=== PATIENT | female | born 2000 | race American Indian/Alaskan Native ===

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

== ENCOUNTER 2018-10-29 17:47 | Emergency (ER) | payer MEDICAID, OTHER ==
[2018-10-29 18:43] LABS: Basophils # (Auto) 0.1 K/mm3 (0.0-0.1); Basophils % (Auto) 0.5 % (0.0-1.8); Eosinophils # (Auto) 0.2 K/mm3 (0.0-0.4); Eosinophils % (Auto) 1.4 % (0.0-4.3); Hematocrit 37.9 % (30.3-42.9); Hemoglobin 12.5 gm/dl (10.1-14.3); Lymphocytes # (Auto) 2.2 K/mm3 (1.2-5.4); Lymphocytes % (Auto) 19.7 % (13.4-35.0); Mean Corpuscular HGB Conc 33 % (30-34); Mean Corpuscular Volume 83 fl (79-97); Monocytes % (Auto) 8.8 % (0.0-7.3); Platelet Count 309 K/mm3 (140-440); Red Blood Count 4.59 M/mm3 (3.65-5.03); Red Cell Distribution Width 14.6 % (13.2-15.2)
[2018-10-29 19:07] LABS: Alanine Aminotransferase 39 units/L (7-56); Albumin 4.2 g/dL (3.9-5); BUN/Creatinine Ratio 14; Blood Urea Nitrogen 7 mg/dL (7-17); Calcium 8.9 mg/dL (8.4-10.2); Hemolysis Index 2
[2018-10-29 19:20] LABS: Bilirubin,Urine NEG (Negative); Blood,Urine NEG (Negative); Color,Urine Yellow (Yellow); Mucus,Urine FEW /HPF; Protein,Urine <15 mg/dL mg/dL (Negative)
[2018-10-29] MEDS ORDERED: TYLENOL PO ONE (23:04)
[2018-10-29] MEDS ORDERED: ZOFRAN ODT PO ONE (23:04)
--- NOTE | 2018-10-30 00:02 | Emergency Department Report ---
ED N/V/D HPI - General Chief complaint: Nausea/Vomiting/Diarrhea Stated complaint: VOMIT/NAUSEA/WEAK Time Seen by Provider: 10/29/18 22:00 Source: patient Mode of arrival: Ambulatory Limitations: No Limitations - History of Present Illness Initial comments: Patient is a A0 18-year-old [place]inamese female with no past medical history and is approximately 4 weeks gestation presents to the ED with complaint of acute onset persistent intractable nausea and vomiting for the last 1 week. Patient says that she has not been able to keep anything down especially in the last 24 hours. Patient also complains of pelvic pain. Patient denies vaginal bleeding, dysuria, urinary frequency and urgency, hematuria, diarrhea, fever, chills, dizziness, headache, chest pain or shortness of breath. MD complaint: nausea, vomiting, abdominal pain -: Gradual, week(s) (1) Description of Vomiting: food contents, bilious Description of Diarrhea: other (No diarrhea) Associated Abdominal Pain: Yes (Pelvic pain) Radiation: none Severity: severe Pain Scale: 7 Quality: cramping, aching, sharp Consistency: intermittent Improves with: none Worsens with: vomiting Context: other (Recently tested positive for ) Associated Symptoms: loss of appetite, malaise, nausea/vomiting. denies: myalgias, chest pain, cough, fever/chills, headaches, shortness of breath, syncope, weakness - Related Data Previous Rx's Medication Instructions Recorded Last Taken Type ALBUTEROL Inhaler (OR & NICU) 2 puff IH QID PRN #1 inhalation 06/10/14 Unknown Rx [ProAir HFA Inhaler] Azithromycin [Zithromax TAB] 500 mg PO QDAY #3 tablet 06/10/14 Unknown Rx Benzonatate [Tessalon Perles] 100 mg PO Q8HR #20 capsule 06/10/14 Unknown Rx guaiFENesin/CODEINE [Robitussin AC] 5 ml PO TID #120 ml 06/10/14 Unknown Rx predniSONE [Prednisone] 40 mg PO QDAY #10 tablet 06/10/14 Unknown Rx Ketorolac [Toradol] 10 mg PO Q6H PRN #20 tablet 11/05/17 Unknown Rx Ondansetron [Zofran Odt] 4 mg PO Q8HR PRN #14 tab.rapdis 05/12/18 Unknown Rx Ibuprofen [Motrin] 600 mg PO Q8H PRN #30 tablet 11/07/17 Unknown Rx Ondansetron [Zofran TAB] 4 mg PO Q8HR PRN #20 tablet 11/07/17 Unknown Rx Pnv No.95/Ferrous Fum/Folic AC 1 each PO DAILY #30 tablet 10/30/18 Unknown Rx [Prenavite Tablet] Promethazine [Phenergan] 25 mg PO Q6HR PRN #30 tab 10/30/18 Unknown Rx Promethazine [Phenergan] 25 mg MT Q6HR PRN #15 supp.rect 10/30/18 Unknown Rx Allergies Allergy/AdvReac Type Severity Reaction Status Date / Time No Known Allergies Allergy Verified 06/10/14 10:56 ED Review of Systems ROS: Stated complaint: VOMIT/NAUSEA/WEAK Other details as noted in HPI Comment: All other systems reviewed and negative Constitutional: no symptoms reported, see HPI. denies: diaphoresis, fever, malaise Eyes: as per HPI. denies: eye pain, eye discharge, vision change ENT: as per HPI. denies: ear pain, throat pain, dental pain, epistaxis Respiratory: no symptoms reported, see HPI, cough. denies: shortness of breath, SOB with exertion, SOB at rest Cardiovascular: as per HPI. denies: chest pain, palpitations, dyspnea on exertion, syncope, paroxysmal nocturnal dyspnea Endocrine: no symptoms reported, see HPI. denies: excessive sweating, flushing, intolerance to cold, increased urine, unexplained weight gain Gastrointestinal: as per HPI, abdominal pain, nausea, vomiting. denies: constipation, hematemesis, hematochezia Genitourinary: as per HPI. denies: urgency, dysuria, frequency, hematuria, discharge, abnormal menses, dyspareunia Musculoskeletal: as per HPI, arthralgia, myalgia. denies: back pain Skin: as per HPI. denies: rash, lesions, change in color, change in hair/nails Neurological: as per HPI. denies: headache, weakness, numbness, paresthesias, confusion, vertigo Psychiatric: as per HPI Hematological/Lymphatic: as per HPI ED Past Medical Hx - Past Medical History Previous Medical History?: No Additional medical history: HEAVY MENSES - Surgical History Past Surgical History?: Yes Hx Cholecystectomy: Yes - Social History Smoking Status: Never Smoker Substance Use Type: None - Medications Home Medications: Home Medications Medication Instructions Recorded Confirmed Last Taken Type ALBUTEROL Inhaler (OR & NICU) 2 puff IH QID PRN #1 inhalation 06/10/14 Unknown Rx [ProAir HFA Inhaler] Azithromycin [Zithromax TAB] 500 mg PO QDAY #3 tablet 06/10/14 Unknown Rx Benzonatate [Tessalon Perles] 100 mg PO Q8HR #20 capsule 06/10/14 Unknown Rx guaiFENesin/CODEINE [Robitussin AC] 5 ml PO TID #120 ml 06/10/14 Unknown Rx predniSONE [Prednisone] 40 mg PO QDAY #10 tablet 06/10/14 Unknown Rx Ketorolac [Toradol] 10 mg PO Q6H PRN #20 tablet 11/05/17 Unknown Rx Ondansetron [Zofran Odt] 4 mg PO Q8HR PRN #14 tab.rapdis 11/05/17 Unknown Rx Ibuprofen [Motrin] 600 mg PO Q8H PRN #30 tablet 11/07/17 Unknown Rx Ondansetron [Zofran TAB] 4 mg PO Q8HR PRN #20 tablet 11/07/17 Unknown Rx Pnv No.95/Ferrous Fum/Folic AC 1 each PO DAILY #30 tablet 10/30/18 Unknown Rx [Prenavite Tablet] Promethazine [Phenergan] 25 mg PO Q6HR PRN #30 tab 10/30/18 Unknown Rx Promethazine [Phenergan] 25 mg MT Q6HR PRN #15 supp.rect 10/30/18 Unknown Rx ED Physical Exam - General Limitations: No Limitations General appearance: alert, in no apparent distress - Head Head exam: Present: atraumatic, normocephalic, normal inspection - Eye Eye exam: Present: normal appearance, PERRL, EOMI Pupils: Present: normal accommodation - ENT ENT exam: Present: normal exam, normal orophraynx, mucous membranes moist, TM's normal bilaterally, normal external ear exam - Neck Neck exam: Present: normal inspection. Absent: tenderness, meningismus, lymphadenopathy - Respiratory Respiratory exam: Present: normal lung sounds bilaterally. Absent: respiratory distress, wheezes, chest wall tenderness, accessory muscle use, decreased breath sounds - Cardiovascular Cardiovascular Exam: Present: regular rate, normal rhythm, normal heart sounds - GI/Abdominal GI/Abdominal exam: Present: soft, tenderness (suprapubic), normal bowel sounds. Absent: distended, guarding, rebound, hyperactive bowel sounds, hypoactive bowel sounds - Rectal Rectal exam: Present: deferred - Extremities Exam Extremities exam: Present: normal inspection, full ROM, normal capillary refill - Back Exam Back exam: Present: normal inspection, full ROM. Absent: tenderness, CVA tenderness (R), CVA tenderness (L), muscle spasm, paraspinal tenderness, vertebral tenderness - Neurological Exam Neurological exam: Present: alert, oriented X3, CN II-XII intact, normal gait, reflexes normal - Psychiatric Psychiatric exam: Present: normal affect - Skin Skin exam: Present: warm, dry, intact, normal color ED Course Vital Signs 10/29/18 10/29/18 10/30/18 18:00 23:50 00:50 Temperature 98.2 F Pulse Rate 71 Respiratory 18 18 20 Rate Blood Pressure 119/67 O2 Sat by Pulse 100 Oximetry - Reevaluation(s) Reevaluation #1: 10/29/18 23:03 Patient is alert and oriented 3 and is not in any distress with normal vital signs. Labs were drawn and patient today for pain and nausea and vomiting. Transvaginal ultrasound also ordered. 10/30/18 03:09 The Transvaginal US shows an IUP of 5 weeks 6 days with a yolk sac ED Medical Decision Making - Lab Data Result diagrams: 10/29/18 18:09 10/29/18 18:09 - Radiology Data Radiology results: report reviewed, image reviewed Transvaginal US shows an IUP of approximately 5 weeks 6 days with a folk sac - Medical Decision Making Patient is alert and oriented 3 and is not in any distress. Lab test results were reviewed and are unremarkable except for acute leukocytosis of approximately 11,400, and a positive hCG qualitative test. HCG quantitative test was 9056. The transvaginal US shows an IUP of approximately 5 weeks 6 days with a yolk sac. Patient discharged home and advised to maintain a Pelvic rest, and follow up with her [facility] physician in 5-7 days for reevaluation, or return to the ED immediately if symptoms get worse. - Differential Diagnosis Hyperemesis Gravidarum; Threatened miscarriage, Acute UTI Critical care attestation.: If time is entered above; I have spent that time in minutes in the direct care of this critically ill patient, excluding procedure time. ED Disposition Clinical Impression: Nausea and vomiting in adult patient, Hyperemesis gravidarum, Threatened miscarriage in early Disposition: TO HOME OR SELFCARE Is pt being admited?: No Does the pt Need Aspirin: No Condition: Stable Instructions: Morning Sickness (ED), (ED), Hyperemesis Gravidarum (ED), Acute Nausea and Vomiting (ED), Threatened Miscarriage (ED) Additional Instructions: MAINTAIN A CLEAR LIQUID DIET FOR 12-24 HOURS, DRINK PLENTY OF FLUIDS AND FOLLOW UP WITH YOUR [facility]GE[facility] PHYSICIAN IN 5-7 DAYS FOR REEVALUATION Prescriptions: Promethazine [Phenergan] 25 mg PO Q6HR PRN #30 tab PRN Reason: Nausea Promethazine [Phenergan] 25 mg MT Q6HR PRN #15 supp.rect PRN Reason: Nausea Pnv No.95/Ferrous Fum/Folic AC [Prenavite Tablet] 1 each PO DAILY #30 tablet Referrals: YOSELYN SWAN MD [Primary Care Provider] - 3-5 Days Forms: Work/School Release Form(ED) Time of Disposition: 03:17 Print Language: AFGHAN
--- NOTE | 2018-10-30 02:49 | Ultrasound Report ---
PROCEDURE: US OB <= 14 WEEKS FETUS TECHNIQUE: OB ultrasound obtained. HISTORY: PELVIC PAIN: COMPARISONS: None FINDINGS: Uterus measures 9.9 x 4.1 x 5.3 cm. Endometrial stripe measures 9 mm thick. Cystic structures seen wi thin the endometrium likely represents intrauterine gestational sac with mean sac diameter of 1.05 cm corresponding gestational age of 5 weeks and 6 days. Yolk sac visualized. Possible small pole measuring 0.18 cm, however too small for dates. Doppler flow seen in both ovaries. Slightly complex left adnexal lesion measuring 1.6 cm may represen t involuting corpus luteal cyst. IMPRESSION: Cystic structures seen within the endometrium likely represents intrauterine gestational sac with becky n sac diameter of 1.05 cm corresponding gestational age of 5 weeks and 6 days. Yolk sac visualized. P ossible small pole measuring 0.18 cm, however too small for dates. Close serial ultrasound foll ow-up recommended. This document is electronically signed by Phil Perdue MD., Oct 30 2018 02:47:11 AM ET
--- NOTE | 2018-10-30 02:50 | Ultrasound Report ---
PROCEDURE: US OB TRANSVAGINAL TECHNIQUE: OB ultrasound obtained. HISTORY: PELVIC PAIN: COMPARISONS: None FINDINGS: Uterus measures 9.9 x 4.1 x 5.3 cm. Endometrial stripe measures 9 mm thick. Cystic structures seen wi thin the endometrium likely represents intrauterine gestational sac with mean sac diameter of 1.05 cm corresponding gestational age of 5 weeks and 6 days. Yolk sac visualized. Possible small pole measuring 0.18 cm, however too small for dates. Doppler flow seen in both ovaries. Slightly complex left adnexal lesion measuring 1.6 cm may represen t involuting corpus luteal cyst. IMPRESSION: Cystic structures seen within the endometrium likely represents intrauterine gestational sac with becky n sac diameter of 1.05 cm corresponding gestational age of 5 weeks and 6 days. Yolk sac visualized. P ossible small pole measuring 0.18 cm, however too small for dates. Close serial ultrasound foll ow-up recommended. This document is electronically signed by Phil Perdue MD., Oct 30 2018 02:47:50 AM ET
[2018-10-30 03:30] VITALS: BP 132/72
== END 2018-10-30 03:32 | disposition home or self-care (01) ==
LOC: ED 17:47
DX: O21.0 Mild hyperemesis gravidarum (principal); O20.0 Threatened abortion; Z3A.01 Less than 8 weeks gestation of pregnancy; Z90.49 Acquired absence of other specified parts of digestive tract
CPT/HCPCS: 36415; 76801; 76817; 80053; 81001; 83690; 84702; 84703; 85025; 99284; Q0162

== ENCOUNTER 2019-04-05 12:43 | Outpatient (CLI) | payer OTHER ==
[2019-04-05 13:15] VITALS: BP 128/61
[2019-04-05 14:17] LABS: Bacteria,Urine 1+ /HPF (Negative); Bilirubin,Urine NEG (Negative); Blood,Urine NEG (Negative); Color,Urine Yellow (Yellow); Mucus,Urine FEW /HPF; Protein,Urine <15 mg/dL mg/dL (Negative); Urobilinogen,Urine < 2.0 mg/dL (<2.0)
[2019-04-05] MEDS ORDERED: LACTATED RINGERS 1,000 ML ONE ×2 (14:21→16:41)
[2019-04-05] MEDS ORDERED: BRETHINE SUB-Q ONE (16:55)
== END 2019-04-05 18:25 | disposition home or self-care (01) ==
LOC: TRG 12:43
PROVIDERS: ATTEND Obstetrics & Gynecology
DX: O21.2 Late vomiting of pregnancy (principal); O26.892 Other specified pregnancy related conditions, second trimester; R10.2 Pelvic and perineal pain; M54.5 Low back pain; O47.02 False labor before 37 completed weeks of gestation, second trimester; O99.512 Diseases of the respiratory system complicating pregnancy, second trimester; J45.909 Unspecified asthma, uncomplicated; Z90.49 Acquired absence of other specified parts of digestive tract; Z3A.27 27 weeks gestation of pregnancy
CPT/HCPCS: 59025; 81001; 96372; J3105; J7120; 96360; 96361

== ENCOUNTER 2019-06-27 09:52 | Inpatient (IN) | payer OTHER ==
[2019-06-27] MEDS ORDERED: LACTATED RINGERS 500 ML IV ONE (11:00)
[2019-06-27] MEDS ORDERED: MINERAL OIL 30 ML ORAL LIQD PO PRN (14:31)
[2019-06-27] MEDS ORDERED: TERBUTALINE 1 MG/1 ML INJ SUB-Q PRN (14:31)
[2019-06-27] MEDS ORDERED: LIDOCAINE (2%) 20 MG/1 ML VIAL 20 ML MDV INFILTRATI ONE (14:31)
[2019-06-27] MEDS ORDERED: TERBUTALINE 1 MG/1 ML INJ IVP PRN (14:31)
[2019-06-27] MEDS ORDERED: ePHEDrine SULFATE 50 MG/1 ML INJ IV PRN (14:31)
[2019-06-27] MEDS ORDERED: OXYTOCIN 20 UNIT/1000ML DRIP 20 UNITS/1,000 ML BAG IV SCH ×2 (15:00→21:00)
[2019-06-27] MEDS ORDERED: LACTATED RINGERS 1,000 ML IV SCH (15:00)
[2019-06-27] MEDS: BUTORPHANOL 2 MG/1 ML INJ IV PRN ×2 (15:36→18:23)
[2019-06-27 16:51] LABS: Hematocrit 35.1 % (30.3-42.9); Hemoglobin 12.3 gm/dl (10.1-14.3); Mean Corpuscular HGB Conc 35 % (30-34); Mean Corpuscular Volume 85 fl (79-97); Platelet Count 184 K/mm3 (140-440); Red Blood Count 4.12 M/mm3 (3.65-5.03); Red Cell Distribution Width 15.2 % (13.2-15.2)
[2019-06-27] MEDS ORDERED: HYDROmorphone 1 MG/1 ML INJ IV PRN (19:52)
[2019-06-27] MEDS ORDERED: ONDANSETRON 4 MG/2 ML INJ IV PRN (19:52)
[2019-06-27] MEDS ORDERED: ceFAZolin 1 GM VIAL ONE (20:11)
[2019-06-27] MEDS ORDERED: PHENYLEPHRINE/NS 1,000 MCG/10 ML SYRINGE (OR USE) IV ONE (20:11)
[2019-06-27] MEDS ORDERED: DEXMEDETOMIDINE 200 MCG/2 ML VIAL IV ONE (20:11)
--- NOTE | 2019-06-27 20:47 | History and Physical Report ---
History of Present Illness Date of examination: 06/27/19 Date of admission: 06/27/19 13:27 Chief complaint: contractions History of present illness: 18y/o @ 39+2 weeks presents to labor and delivery with regular uterine contractions. The patient was found to be 4 cm at presentation membranes intact. The patient initiated care in the first trimester. Her course is complicated by obesity, polyhydramnios resolved during the . Sickle cell trait. The patient is GBS negative. Past History Past Medical History: other (obesity) Past Surgical History: cholecystectomy Social history: single - Obstetrical History Expected Date of Delivery: 07/02/19 Actual Gestation: 39 Week(s) 2 Day(s) : 1 Para: 0 Hx # Term Pregnancies: 0 Number of Pregnancies: 0 Spontaneous Abortions: 0 Induced : 0 Number of Living Children: 0 Medications and Allergies Allergies Allergy/AdvReac Type Severity Reaction Status Date / Time No Known Allergies Allergy Verified 06/10/14 10:56 Home Medications Medication Instructions Recorded Confirmed Last Taken Type ALBUTEROL Inhaler (OR & NICU) 2 puff IH QID PRN #1 inhalation 06/10/14 Unknown Rx [ProAir HFA Inhaler] Azithromycin [Zithromax TAB] 500 mg PO QDAY #3 tablet 06/10/14 Unknown Rx Benzonatate [Tessalon Perles] 100 mg PO Q8HR #20 capsule 06/10/14 Unknown Rx guaiFENesin/CODEINE [Robitussin AC] 5 ml PO TID #120 ml 06/10/14 Unknown Rx predniSONE [Prednisone] 40 mg PO QDAY #10 tablet 06/10/14 Unknown Rx Ketorolac [Toradol] 10 mg PO Q6H PRN #20 tablet 11/05/17 Unknown Rx Ondansetron [Zofran Odt] 4 mg PO Q8HR PRN #14 tab.rapdis 11/05/17 Unknown Rx Ibuprofen [Motrin] 600 mg PO Q8H PRN #30 tablet 11/07/17 Unknown Rx Ondansetron [Zofran TAB] 4 mg PO Q8HR PRN #20 tablet 11/07/17 Unknown Rx Pnv No.95/Ferrous Fum/Folic AC 1 each PO DAILY #30 tablet 10/30/18 Unknown Rx [Prenavite Tablet] Promethazine [Phenergan] 25 mg PO Q6HR PRN #30 tab 10/30/18 Unknown Rx Promethazine [Phenergan] 25 mg TN Q6HR PRN #15 supp.rect 10/30/18 Unknown Rx Active Meds: Active Medications Butorphanol Tartrate (Stadol) 2 mg IV Q2H PRN PRN Reason: Labor Pain Last Admin: 06/27/19 18:23 Dose: 2 mg Documented by: Ephedrine Sulfate (Ephedrine Sulfate) 10 mg IV Q2M PRN PRN Reason: Hypotension Hydromorphone HCl (Dilaudid) 0.5 mg IV Q4H PRN PRN Reason: breakthrough pain > 7/10 Oxytocin/Sodium Chloride (Pitocin/Ns 20 Unit/1000ml Drip) 20 units in 1,000 mls @ 125 mls/hr IV DIRECT DEEPA Lactated Ringer's (Lactated Ringers) 1,000 mls @ 125 mls/hr IV DIRECT DEEPA Last Admin: 06/27/19 14:56 Dose: 125 mls/hr Documented by: Mineral Oil (Mineral Oil) 30 ml PO QHS PRN PRN Reason: Constipation Ondansetron HCl (Zofran) 4 mg IV Q8H PRN PRN Reason: Nausea And Vomiting Sodium Chloride (Sodium Chloride Flush Syringe 10 Ml) 10 ml IV PRN NR Stop: 06/28/19 19:59 Terbutaline Sulfate (Brethine) 0.25 mg SUB-Q ONCE PRN PRN Reason: Hyperstimulation/Hypertonicity Terbutaline Sulfate (Brethine) 0.25 mg IVP ONCE PRN PRN Reason: Hyperstimulation/Hypertonicity Review of Systems Genitourinary: contractions - Vital Signs Vital signs: Vital Signs Pulse BP 75 126/65 06/27/19 10:31 06/27/19 10:31 Temp Pulse Resp BP Pulse Ox 98.9 F 109 H 16 123/60 100 06/27/19 18:23 06/27/19 19:49 06/27/19 18:23 06/27/19 18:16 06/27/19 19:49 - Physical Exam Breasts: Positive: deferred Cardiovascular: Regular rate Lungs: Positive: Clear to auscultation Results Result Diagrams: 06/27/19 16:21 Abnormal lab results 06/27/19 Range/Units 16:21 MCHC 35 H (30-34) % All other labs normal. Assessment and Plan - Patient Problems (1) Active labor at term Current Visit: Yes Status: Acute Plan to address problem: Admit to labor and delivery
--- NOTE | 2019-06-27 20:48 | Procedure Note ---
OB Delivery Note - Delivery Date of Delivery: 06/27/19 Surgeon: LUCRECIA LUO Estimated blood loss: other (800ml) - Section Preop diagnosis: nonreassuring FHR tracing Postop diagnosis: same section procedure: section, primary low transverse Disposition: PACU Complications: none - A at 1 minute: 2 at 5 minutes: 8 Infant Gender: Male (weight 7 lbs. 14 oz.)
[2019-06-27] MEDS ORDERED: ONDANSETRON 4 MG/2 ML INJ ONE (20:49)
[2019-06-27] MEDS ORDERED: ACETAMINOPHEN 325 MG TAB PO PRN (20:51)
[2019-06-27] MEDS ORDERED: KETOROLAC 30 MG/1 ML INJ IV PRN (20:51)
[2019-06-27] MEDS ORDERED: MORPHINE 4 MG/1 ML INJ IV PRN (20:51)
[2019-06-27] MEDS ORDERED: IBUPROFEN 800 MG TAB PO PRN (20:51)
[2019-06-27] MEDS ORDERED: WITCH HAZEL/ GLYCERIN PAD TP PRN (20:51)
[2019-06-27] MEDS ORDERED: NALOXONE 0.4 MG/1 ML INJ IV PRN (20:51)
[2019-06-27] MEDS ORDERED: LANOLIN/ZINC/DIMETHICONE (LANSINOH) 7 GM TP PRN (20:51)
--- NOTE | 2019-06-27 20:51 | Operative Report ---
Operative Report Operative Report: Date of surgery: 06/27/2019 Preoperative diagnosis: at 39+2 weeks; nonreassuring heart rate tracings; obesity Postoperative diagnosis: Same as above Procedure: Primary low-transverse delivery Surgeon: Za August M.D. Anesthesia: Regional Estimated blood loss: 800 mL Findings: Liveborn male infant with Apgars of 2 and 8 weight 7 lbs. 14 oz. Indications: 18-year-old at 39+2 weeks who presents in active labor. The patient's intrapartum course was complicated by nonreassuring heart rate tracing with bradycardia. The patient was taken for primary delivery. Procedure: The patient was taken to the operating room and given regional anesthesia without complication. She was prepped and draped in a normal sterile fashion. A Pfannenstiel skin incision was made down to layer the fascia which was nicked in the midline extended laterally with the Bovie cautery. The superior aspect of the rectus fascia was grasped with [place] clamps x2 and the rectus muscles off sharply. This was done in inferior fashion as well. The rectus muscle midline and peritoneum entered bluntly. An Lul retractor was then inserted. A bladder blade was placed. The vesicouterine peritoneum was then entered sharply with Metzenbaum scissors. A bladder flap was created digitally. A low transverse uterine incision was then made and extended digitally. There was clear fluid upon entry into the uterine cavity. The head was delivered through the incision with fundal pressure. The cord was clamped and cut x2 and was passed off to pediatrics. The placenta was then manually extracted. The uterus was then exteriorized and cleared of clots and debris. The uterine incision was then closed in a running locked fashion with 0 Vicryl additional imbricating stitch was applied for 2 layer closure. The posterior cul-de-sac was then copiously irrigated. The uterus was replaced back into the abdomen and pelvis were the gutters were then irrigated. The Lul retractor was then removed. The peritoneum was then reapproximated with 3-0 Vicryl incorporating the rectus muscle. The fascia was then closed with 0 Vicryl in a running fashion. The skin was then reapproximated with 3-0 Monocryl on a Manav needle subcuticular fashion. Steri-Strips to place across the incision and a Crede procedures performed at the end of the surgery. A pressure dressing was applied to the incision. The surgery productive of a liveborn male infant with Apgars of 2 and 8 weight 7 lbs. 14 oz. The patient was taken to the recovery room in stable condition. All sponge laps and needle counts correct x2.
[2019-06-27] MEDS ORDERED: D5W/LACTATED RINGERS 1,000 ML IV SCH (21:00)
--- NOTE | 2019-06-27 21:12 | Anesthesia Consultation ---
Anesthesia Consult and Med Hx Date of service: 06/27/19 - Airway Anesthetic Teeth Evaluation: Good ROM Head & Neck: Adequate Mental/Hyoid Distance: Adequate Mallampati Class: Class III Intubation Access Assessment: Probably Good - Pulmonary Exam CTA: Yes - Cardiac Exam Cardiac Exam: RRR - Pre-Operative Health Status ASA Pre-Surgery Classification: ASA3, Emergency Proposed Anesthetic Plan: Spinal - Pre-Anesthesia Comment Pre-Anesthesia Comments: jeni durand, no anesthesia complications - Pulmonary Hx Smoking: No Hx Asthma: No Hx Respiratory Symptoms: No SOB: No COPD: No Home Oxygen Therapy: No Hx Pneumonia: No Hx Sleep Apnea: No - Cardiovascular System Hx Hypertension: No Hx Coronary Artery Disease: No Hx Heart Attack/AMI: No Hx Angina: No Hx Percutaneous Transluminal Coronary Angioplasty (PTCA): No Hx Cardia Arrhythmia: No Hx Pacemaker: No Hx Internal Defibrillator: No Hx Valvular Heart Disease: No Hx Heart Murmur: No Hx Peripheral Vascular Disease: No - Central Nervous System Hx Neuromuscular Disorder: No Hx Seizures: No CVA: No Hx Back Pain: No Hx Psychiatric Problems: No - Gastrointestinal Hx Ulcer: No Hx Gastroesophageal Reflux Disease: Yes - Endocrine Hx Renal Disease: No Hx End Stage Renal Disease: No Hx Cirrhosis: No Hx Liver Disease: No Hx Insulin Dependent Diabetes: No Hx Non-Insulin Dependent Diabetes: No Hx Thyroid Disease: No Hx Hypothyroidism: No Hx Hyperthyroidism: No - Hematic Hx Anemia: No Hx Sickle Cell Disease: No - Other Systems Hx Alcohol Use: No Hx Substance Use: No Hx Cancer: No Hx Obesity: Yes
--- NOTE | 2019-06-27 21:14 | Post Anesthesia Evaluation ---
- Post Anesthesia Evaluation Patient Participated: Yes Airway Patent: Yes Stable Respiratory Function: Yes Nausea/Vomiting: No Temp > 96.8F: Yes Pain Manageable: Yes Adequeate Hydration: Yes Anesthesia Complications: No Block Receding Appropriately: Yes Patient on Ventilator: No
--- NOTE | 2019-06-27 21:14 | Anesthesia Day of Surgery ---
Anesthesia Day of Surgery - Day of Surgery Patient Examined: Yes Patient H&P Reviewed: Yes Patient is NPO: Yes Beta Blockers: No Cardiac Clearance: No Pulmonary Clearance: No Bhanu's Test: N/A
--- NOTE | 2019-06-28 07:49 | Progress Note ---
Assessment and Plan A: POD1 s/p LTCS, vital signs stable, awaiting pp hgb/hct P: Routine pp care, anticipate d/c to home on POD3 Subjective - Subjective Date of service: 06/28/19 Principal diagnosis: s/p primary LTCS Interval history: Pt is POD1 (10 hours) s/p primary LTCS for NRFHT in active labor Patient reports: appetite normal, pain well controlled, other (not yet ambulating), no flatus : doing well, bottle feeding (attempting to breast feed) Objective - Vital Signs Latest vital signs: Vital Signs Temp Pulse Resp BP BP Pulse Ox 06/28/19 05:03 98.3 F 74 18 97/40 95 06/27/19 23:00 99.2 F 76 20 115/59 99 06/27/19 22:00 70 20 115/58 06/27/19 21:45 78 15 79/53 06/27/19 21:30 72 14 96/69 100 06/27/19 21:15 98.4 F 71 16 114/74 98 06/27/19 21:10 73 16 128/77 73 L 06/27/19 21:05 80 13 124/31 100 06/27/19 21:00 97.6 F 65 12 112/22 96 06/27/19 19:49 109 H 100 06/27/19 19:46 92 H 92 06/27/19 19:44 114 H 100 06/27/19 19:33 75 100 06/27/19 19:28 76 100 06/27/19 19:23 82 100 06/27/19 19:18 74 99 06/27/19 19:13 92 H 97 06/27/19 18:23 98.9 F 16 06/27/19 18:16 65 123/60 06/27/19 17:16 60 106/56 06/27/19 16:19 88 117/58 06/27/19 14:56 62 135/70 06/27/19 10:38 97.8 F 75 20 126/65 06/27/19 10:31 75 126/65 Intake and Output 06/27/19 06/27/19 06/28/19 15:59 23:59 07:59 Intake Total 1600 240 Output Total 300 700 Balance 1300 -460 Intake: IV 1600 Intake, Free Water 240 Output: Urine 300 700 Indwelling Catheter 700 Uretheral (Gonzalez) 100 Other: Total, Output Amount 700 Weight 280 lb Estimated Blood Loss 800 - Exam Lungs: Present: Normal air movement Abdomen: Present: soft Uterus: Present: firm, fundal height below umbilicus Incision: Present: dressed - Labs Labs: Abnormal lab results 06/27/19 Range/Units 16:21 MCHC 35 H (30-34) %
[2019-06-28] MEDS: KETOROLAC 30 MG/1 ML INJ IV SCH ×3 (09:00→22:22)
[2019-06-28 11:28] LABS: Hematocrit 33.4 % (30.3-42.9); Hemoglobin 11.3 gm/dl (10.1-14.3)
[2019-06-28] MEDS: oxyCODONE /ACETAMINOPHEN 5-325MG TAB PO PRN (13:00)
[2019-06-29] MEDS: KETOROLAC 30 MG/1 ML INJ IV SCH (05:15)
--- NOTE | 2019-06-29 08:51 | Progress Note ---
Assessment and Plan A/P POD1 s/p routine care d/c home tomorrow with f/u in 2 weeks Subjective - Subjective Date of service: 06/29/19 Principal diagnosis: s/p primary LTCS Patient reports: appetite normal, voiding normally, pain well controlled, flatus, ambulating normally : doing well Objective - Vital Signs Latest vital signs: Vital Signs Temp Pulse Resp BP BP Pulse Ox 06/29/19 08:02 98.0 F 71 18 99/60 06/28/19 23:14 98.6 F 82 20 106/53 92 06/28/19 16:55 98.3 F 65 20 111/51 06/28/19 13:55 98.5 F 75 20 118/58 Intake and Output 06/28/19 06/29/19 06/29/19 23:59 07:59 15:59 Intake Total 120 480 Output Total 500 Balance -380 480 Intake: Oral 120 480 Output: Urine 500 Void 500 Other: Total, Intake Amount 120 480 Total, Output Amount 500 # Voids Void 1 1 - Exam Breasts: Present: normal Cardiovascular: Present: Regular rate, Normal S1 Lungs: Present: Clear to auscultation, Normal air movement Abdomen: Present: soft, normal bowel sounds. Absent: distention, tenderness, guarding Vulva: both: normal Uterus: Present: normal, firm. Absent: bogginess Extremities: Present: normal Deep Tendon Reflex Grade: Normal +2 Incision: Present: normal, dry, intact
[2019-06-29] MEDS: oxyCODONE /ACETAMINOPHEN 5-325MG TAB PO PRN (10:54)
[2019-06-30] MEDS: oxyCODONE /ACETAMINOPHEN 5-325MG TAB PO PRN (00:09)
--- NOTE | 2019-06-30 10:04 | Progress Note ---
Assessment and Plan A/P POD3 s/p routine care d/c home Subjective - Subjective Date of service: 06/30/19 Principal diagnosis: s/p primary LTCS Patient reports: appetite normal, voiding normally, pain well controlled, ambulating normally Gantt: doing well Objective - Vital Signs Latest vital signs: Vital Signs Temp Pulse Resp BP BP Pulse Ox 06/30/19 08:20 97.8 F 76 18 111/62 96 06/30/19 01:09 18 06/30/19 00:53 98.9 F 72 18 105/53 98 06/30/19 00:09 18 06/29/19 16:55 98.6 F 77 18 112/60 Intake and Output 06/29/19 06/30/19 06/30/19 23:59 07:59 15:59 Intake Total 480 960 Output Total 3 Balance 480 957 Intake: Oral 480 Intake, Free Water 960 Output: Urine 3 Void 3 Other: Total, Intake Amount 480 Total, Output Amount 3 # Voids Void 2 - Exam Breasts: Present: normal Cardiovascular: Present: Regular rate, Normal S1 Lungs: Present: Clear to auscultation, Normal air movement Abdomen: Present: normal appearance, soft, normal bowel sounds. Absent: distention, tenderness, guarding Vulva: both: normal Uterus: Present: normal, firm, fundal height below umbilicus. Absent: bogginess, tenderness Extremities: Present: normal Deep Tendon Reflex Grade: Normal +2 Incision: Present: normal, dry, intact
--- NOTE | 2019-06-30 10:06 | Discharge Summary ---
Providers - Providers Date of Admission: 06/27/19 13:27 Date of discharge: 06/30/19 Attending physician: LUCRECIA LUO Primary care physician: LUCRECIA LUO Hospitalization Reason for admission: IUP at term Delivery: Procedure: section Episiotomy: none Laceration: none Incision: normal, dry, intact Other procedures: none complications: none Discharge diagnosis: IUP at term delivered Mayetta baby: male Condition at discharge: Good Disposition: DC-01 TO HOME OR SELFCARE Plan - Discharge Medications Prescriptions: Ferrous Sulfate [Feosol 325 MG tab] 325 mg PO BID #30 tablet Ibuprofen [Motrin] 600 mg PO Q8H PRN #30 tablet PRN Reason: Pain oxyCODONE /ACETAMINOPHEN [Percocet 5/325] 1 tab PO Q6HR PRN #30 tablet PRN Reason: Pain - Provider Discharge Summary Activity: routine, no sex for 6 weeks, no strenuous exercise Diet: routine Instructions: routine Additional instructions: [] Smoking cessation referral if applicable(refer to patient education folder for contact #) [] Refer to [facility] Booklet Call your doctor immediately for: * Fever > 100.5 * Heavy vaginal bleeding ( >1 pad per hour) * Severe persistent headache * Shortness of breath * Reddened, hot, painful area to leg or breast * Drainage or odor from incision. * Keep incision clean and dry at all times and follow doctor's instructions regarding bathing/showering - Follow up plan Follow up: LUCRECIA LUO MD [Primary Care Provider] - 14 Days
[2019-06-30 14:21] VITALS: BP 134/73
== END 2019-06-30 15:05 | disposition home or self-care (01) | DRG 766 ==
LOC: TRG 09:52 → LD 13:27 → OB 22:51
PROVIDERS: ADMIT Obstetrics & Gynecology; ATTEND Obstetrics & Gynecology
PROC: 10D00Z1 Extraction of Products of Conception, Low, Open Approach (ICD-10-PCS; principal; 2019-06-27)
DX: O75.0 Maternal distress during labor and delivery (principal); Z3A.39 39 weeks gestation of pregnancy; Z37.0 Single live birth; E66.9 Obesity, unspecified; Z90.49 Acquired absence of other specified parts of digestive tract; O76 Abnormality in fetal heart rate and rhythm complicating labor and delivery; O99.214 Obesity complicating childbirth; O99.62 Diseases of the digestive system complicating childbirth; K21.9 Gastro-esophageal reflux disease without esophagitis
CPT/HCPCS: 36415; 85014; 85018; 85027; 86850; 86900; 86901; G0378; J0595; J0690; J1885; J2270; J2370; J2405; J2590; J3490; J7120; J7121